=== PATIENT | male | born 1960 | race Caucasian/White ===

== ENCOUNTER 2020-08-14 14:23 | Emergency (ER) | payer BC ==
--- NOTE | 2020-08-14 15:01 | EDM.PDOC ---
ED HPI GENERAL MEDICAL PROBLEM - General Chief Complaint: Chest Pain Stated Complaint: CHEST PAIN Time Seen by Provider: 08/14/20 14:56 Source of Information: Reports: Patient History Limitations: Reports: No Limitations - History of Present Illness INITIAL COMMENTS - FREE TEXT/NARRATIVE: Patient developed non-radiating left sided chest pressure @1 hour ago while driving. Pain lasted 5 min. He is currently pain-free. Denies prior h/o CAD. He was hospitalized at [facility] @1 year ago for a CVA, and has residual expressive aphasia. Patient states that he took ASA 324 mg PO at 0500 today. Duration: Hour(s): (1) Location: Reports: Chest Quality: Reports: Pressure Left Lower Anterior Chest Pain Score (Numeric/FACES): 5 - Related Data Allergies Allergy/AdvReac Type Severity Reaction Status Date / Time No Known Allergies Allergy Verified 08/14/20 16:48 Home Meds: Home Meds Aspirin [Ecotrin EC] 325 mg PO DAILY 08/14/20 [History] Cholecalciferol (Vitamin D3) [Vitamin D] 5,000 unit PO DAILY 08/14/20 [History] Multivitamin [Daily Chanell] 1 each PO DAILY 08/14/20 [History] Timolol Maleate/PF [Timolol Maleate 0.5% Eye Drop] 1 each OP BID 08/14/20 [History] atorvaSTATin Calcium [Lipitor] 40 mg PO BEDTIME 08/14/20 [History] hydroCHLOROthiazide [Hydrochlorothiazide] 25 mg PO DAILY 08/14/20 [History] lisinopriL [Lisinopril] 20 mg PO DAILY 08/14/20 [History] metFORMIN [Glucophage] 500 mg PO BIDMEALS 08/14/20 [History] Past Medical History Cardiovascular History: Reports: High Cholesterol, Hypertension. Denies: CAD Neurological History: Reports: CVA Endocrine/Metabolic History: Reports: Diabetes, Type II ED ROS GENERAL - Review of Systems Review Of Systems: Comprehensive ROS is negative, except as noted in HPI. ED EXAM, GENERAL - Physical Exam Exam: See Below Exam Limited By: No Limitations General Appearance: Alert, WD/WN, No Apparent Distress Throat/Mouth: No Airway Compromise Head: Atraumatic, Normocephalic Neck: Full Range of Motion Respiratory/Chest: No Respiratory Distress, Lungs Clear, Normal Breath Sounds, Chest Non-Tender Cardiovascular: Regular Rate, Rhythm, No Murmur GI/Abdominal: Normal Bowel Sounds, Soft, Non-Tender, No Distention Neurological: Alert, Oriented, Normal Cognition Psychiatric: Normal Affect, Normal Mood Skin Exam: Warm, Dry, Intact #1 Interpretation EKG Date: 08/14/20 Time: 14:22 Rhythm: NSR Rate (Beats/Min): 61 [place]: Normal P-Wave: Present QRS: RBBB ST-T: Normal Comparison: Change From Previous EKG (RBBB is new from 05/10/19) Course - Vital Signs Last Recorded V/S: Last Vital Signs Temp 36.6 C 08/14/20 14:30 Pulse 61 08/14/20 14:30 Resp 19 08/14/20 14:30 BP 167/78 H 08/14/20 14:30 Pulse Ox 95 08/14/20 14:30 - Orders/Labs/Meds Orders: Active Orders 24 hr Category Date Time Status EKG Documentation Completion [RC] ASDIRECTED Care 08/14/20 14:34 Active EKG 12 Lead [EK] Stat Ther 08/14/20 14:34 Ordered Labs: Laboratory Tests 08/14/20 08/14/20 08/14/20 Range/Units 14:30 14:30 14:30 WBC 7.2 (3.2-10.1) x10-3/uL RBC 4.53 (3.90-5.90) x10(6)uL Hgb 14.2 (12.9-17.7) g/dL Hct 42.1 (38.3-50.1) % MCV 93.0 (80.8-98.7) fL MCH 31.3 (27.0-33.3) pg MCHC 33.7 (28.7-35.3) g/dL RDW 13.4 (12.4-15.0) % Plt Count 234 (117-477) x10(3)uL MPV 9.7 (6.7-11.0) fL Neut % (Auto) 61.0 (40.3-71.8) % Lymph % (Auto) 30.1 (15.8-45.3) % Stevens % (Auto) 7.5 (5.5-15.2) % Eos % (Auto) 0.6 (0.1-6.8) % Baso % (Auto) 0.8 (0.3-3.8) % Neut # (Auto) 4.4 (1.7-6.9) x10-3/uL Lymph # (Auto) 2.2 (0.5-4.5) x10-3/uL Stevens # (Auto) 0.5 (0.0-1.2) x10-3/uL Eos # (Auto) 0.0 (0.0-0.6) x10-3/uL Baso # (Auto) 0.1 (0.0-0.3) x10-3/uL Sodium 142 (135-145) mmol/L Potassium 3.7 (3.5-5.3) mmol/L Chloride 103 (100-110) mmol/L Carbon Dioxide 26 (21-32) mmol/L BUN 15 (7-18) mg/dL Creatinine 1.0 (0.70-1.30) mg/dL Est Cr Clr Drug Dosing TNP Estimated GFR (MDRD) > 60 (>60) BUN/Creatinine Ratio 15.0 (9-20) Glucose 126 H (80-116) mg/dL Calcium 9.2 (8.6-10.2) mg/dL Troponin I 7.8 (4.0-60.3) pg/mL 08/14/20 Range/Units 17:05 WBC (3.2-10.1) x10-3/uL RBC (3.90-5.90) x10(6)uL Hgb (12.9-17.7) g/dL Hct (38.3-50.1) % MCV (80.8-98.7) fL MCH (27.0-33.3) pg MCHC (28.7-35.3) g/dL RDW (12.4-15.0) % Plt Count (117-477) x10(3)uL MPV (6.7-11.0) fL Neut % (Auto) (40.3-71.8) % Lymph % (Auto) (15.8-45.3) % Stevens % (Auto) (5.5-15.2) % Eos % (Auto) (0.1-6.8) % Baso % (Auto) (0.3-3.8) % Neut # (Auto) (1.7-6.9) x10-3/uL Lymph # (Auto) (0.5-4.5) x10-3/uL Stevens # (Auto) (0.0-1.2) x10-3/uL Eos # (Auto) (0.0-0.6) x10-3/uL Baso # (Auto) (0.0-0.3) x10-3/uL Sodium (135-145) mmol/L Potassium (3.5-5.3) mmol/L Chloride (100-110) mmol/L Carbon Dioxide (21-32) mmol/L BUN (7-18) mg/dL Creatinine (0.70-1.30) mg/dL Est Cr Clr Drug Dosing Estimated GFR (MDRD) (>60) BUN/Creatinine Ratio (9-20) Glucose (80-116) mg/dL Calcium (8.6-10.2) mg/dL Troponin I 4.2 (4.0-60.3) pg/mL - Radiology Interpretation Free Text/Narrative:: CXR: No acute process (ED provider interpretation) - Re-Assessments/Exams Free Text/Narrative Re-Assessment/Exam: 08/14/20 17:50 Patient was asymptomatic during entire ED stay. Departure - Departure Time of Disposition: 17:51 Disposition: Home, Self-Care 01 Condition: Good Clinical Impression: Chest pain Qualifiers: Chest pain type: unspecified Qualified Code(s): R07.9 - Chest pain, unspecified Instructions: Nonspecific Chest Pain, Adult Referrals: PCP,Not In Area [Primary Care Provider] - Forms: ED Department Discharge Additional Instructions: Continue current medications. Follow up with your primary physician in 2-3 days. Return to the ER as needed. Sepsis Event Note (ED) - Focused Exam Vital Signs: Vital Signs Temp Pulse Resp BP Pulse Ox 08/14/20 14:30 36.6 C 61 19 167/78 H 95 - My Orders Last 24 Hours: My Active Orders 08/14/20 14:34 EKG Documentation Completion [RC] ASDIRECTED EKG 12 Lead [EK] Stat - Assessment/Plan Last 24 Hours: My Active Orders 08/14/20 14:34 EKG Documentation Completion [RC] ASDIRECTED EKG 12 Lead [EK] Stat
--- NOTE | 2020-08-14 17:03 | CR ---
INDICATION: Left-sided chest pain. CHEST ONE VIEW: AP upright portable view of the chest was obtained 08/14/20 - no comparisons. The heart did not appear enlarged. Calcification is noted in the arch of the aorta. Overlying EKG leads are noted. Degenerative changes are noted in the lower middle thoracic spine. A definite active infiltrate or effusion was not identified. IMPRESSION: No acute process. MTDD
== END 2020-08-14 18:03 | disposition home or self-care (01) ==
LOC: FB.ED 14:23
DX: R07.89 Other chest pain (principal); E78.00 Pure hypercholesterolemia, unspecified; I10 Essential (primary) hypertension; E11.9 Type 2 diabetes mellitus without complications; Z79.84 Long term (current) use of oral hypoglycemic drugs; Z79.899 Other long term (current) drug therapy; Z79.82 Long term (current) use of aspirin
CPT/HCPCS: 36415; 71045; 80048; 84484; 85025; 93005; 93010; 99284; 99285-25